=== PATIENT | female | born 1940 | race Caucasian/White ===

== ENCOUNTER 2017-02-16 18:50 | Inpatient (IN) | payer MEDICARE ==
[~2017-02-16] VITALS: Ht 160 cm; Wt 91.1 kg
[2017-02-16 18:52] VITALS: BP 174/72; PULSE 107; RESP 20; TEMP 99; O2SAT 97
--- NOTE | 2017-02-16 19:58 | PD ---
Physical Exam Time Seen by Provider: 19:55 Narrative 76yo F sent by Dr. Perez for elevated d-dimer. pt has had SOB and chest pressure x1 week. Denies hemoptysis. Denies hx of DVT/PE. Denies anticoagulants. VSS. Patient seen in triage. Awaiting bed placement. Data Data Last Documented VS Vital Signs Date Time Temp Pulse Resp B/P Pulse Ox O2 Delivery O2 Flow Rate FiO2 02/16/17 18:52 99.0 107 20 174/72 97 Room Air [facility] Supervised Visit with PATIENCE: Audelia Srinivasan Feb 16, 2017 19:58
[2017-02-16 20:35] VITALS: O2SAT 100
[2017-02-16 20:35] LABS: MEAN CORPUSCULAR HGB CONC 29.3 % (32.0-36.0)
--- NOTE | 2017-02-16 20:37 | PD ---
HPI Chief Complaint: Respiratory Symptoms Time Seen by Provider: 20:30 Travel History International Travel<30 days: No Contact w/Intl Traveler<30days: No Traveled to known affect area: No History of Present Illness HPI 55-year-old female with history of hypertension, osteoporosis, here for evaluation of chest pain and shortness of breath. Patient describes a substernal chest discomfort as well as feeling short of breath on exertion for the last week. She was seen by her primary care physician today who ordered a d -dimer which was positive. Patient denies fevers or chills. No hemoptysis. No history of DVT or PE. No family history of DVT or PE. There is family history of heart disease in her mother. She denies personal history of heart disease. Patient reports having lichen planus on her bilateral lower extremities which causes chronic pain to her legs. This pain is unchanged. PFSH Past Medical History High Cholesterol: Yes Hypertension: Yes Thyroid Disease: Yes (HYPOTHYROIDISM) Tetanus Vaccination: Unknown Influenza Vaccination: No Past Surgical History Appendectomy: Yes Cholecystectomy: Yes Social History Alcohol Use: No Tobacco Use: No Substance Use: No Allergies-Medications (Allergen,Severity, Reaction): Coded Allergies: Penicillin (Verified Allergy, Unknown, 02/16/17) Sulfa (Verified Allergy, Unknown, RASH, 02/16/17) Reported Meds & Prescriptions Reported Meds & Active Scripts Active Reported Levothyroxine (Levothyroxine Sodium) 25 Mcg Tab 25 Mcg PO DAILY Alendronate (Alendronate Sodium) 70 Mg Tab 70 Mg PO Q7D Lovastatin 20 Mg Tab 20 Mg PO DAILY Amlodipine (Amlodipine Besylate) 10 Mg Tab 20 Mg PO DAILY Benazepril (Benazepril HCl) 20 Mg Tab 20 Mg PO DAILY Lialda (Mesalamine) 1.2 Gm Tabdr 2.4 Gm PO BID Take with a meal. Review of Systems Except as stated in HPI: all other systems reviewed are Neg Physical Exam Narrative GENERAL: Well-developed, well-nourished, comfortable, no acute distress. SKIN: Focused skin assessment warm/dry. HEAD: Atraumatic. Normocephalic. EYES: Pupils equal and round. No scleral icterus. No injection or drainage. ENT: Mucous membranes pink and moist. NECK: Trachea midline. No JVD. CARDIOVASCULAR: Regular rate and rhythm. No murmur appreciated. RESPIRATORY: No accessory muscle use. Clear to auscultation. Breath sounds equal bilaterally. GASTROINTESTINAL: Abdomen soft, non-tender, nondistended. MUSCULOSKELETAL: No obvious deformities. No clubbing. No cyanosis. No edema. Bilateral calves are supple. NEUROLOGICAL: Awake and alert. No obvious cranial nerve deficits. Motor grossly within normal limits. Normal speech. PSYCHIATRIC: Appropriate mood and affect; insight and judgment normal. Data Data Last Documented VS Vital Signs Date Time Temp Pulse Resp B/P Pulse Ox O2 Delivery O2 Flow Rate FiO2 02/16/17 20:35 100 Room Air 02/16/17 18:52 99.0 107 20 174/72 Orders Complete Blood Count With Diff (02/16/17 20:34) Comprehensive Metabolic Panel (02/16/17 20:34) Act Partial Throm Time (Ptt) (02/16/17 20:34) Prothrombin Time / Inr (Pt) (02/16/17 20:34) Ckmb (Isoenzyme) Profile (02/16/17 20:34) Troponin I (02/16/17 20:34) Iv Access Insert/Monitor (02/16/17 20:34) Electrocardiogram (02/16/17 20:34) Ecg Monitoring (02/16/17 20:34) Oximetry (02/16/17 20:34) Oxygen Administration (02/16/17 20:34) Chest, Single Ap (02/16/17 20:34) Ct Pulmonary Angiogram (02/16/17 20:34) Sodium Chloride 0.9% Flush (Ns Flush) (02/16/17 20:45) Cbc No Diff, Includes Plts (02/16/17 21:11) Type And Screen (02/16/17 21:12) Iohexol 350 Inj (Omnipaque 350 Inj) (02/16/17 21:57) Red Blood Cells (Rbc) (02/16/17 22:02) Blood Product Administration .UPON TRANSFUSION (02/16/17 22:02) Sodium Chlor 0.9% 250 Ml Inj (Ns 250 Ml (02/16/17 22:15) Labs Laboratory Tests Test 02/16/17 02/16/17 20:45 21:15 White Blood Count 6.8 TH/MM3 6.4 TH/MM3 Red Blood Count 3.57 MIL/MM3 3.37 MIL/MM3 Hemoglobin 6.1 GM/DL 5.7 GM/DL Hematocrit 21.0 % 20.0 % Mean Corpuscular Volume 58.8 FL 59.4 FL Mean Corpuscular Hemoglobin 17.2 PG 17.0 PG Mean Corpuscular Hemoglobin 29.3 % 28.6 % Concent Red Cell Distribution Width 20.4 % 19.7 % Platelet Count 385 TH/MM3 343 TH/MM3 Mean Platelet Volume 8.5 FL 7.6 FL Neutrophils (%) (Auto) 65.3 % Lymphocytes (%) (Auto) 18.5 % Monocytes (%) (Auto) 13.8 % Eosinophils (%) (Auto) 1.7 % Basophils (%) (Auto) 0.7 % Neutrophils # (Auto) 4.5 TH/MM3 Lymphocytes # (Auto) 1.3 TH/MM3 Monocytes # (Auto) 0.9 TH/MM3 Eosinophils # (Auto) 0.1 TH/MM3 Basophils # (Auto) 0.0 TH/MM3 CBC Comment AUTO DIFF Differential Comment AUTO DIFF CONFIRMED Platelet Estimate NORMAL Platelet Morphology Comment NORMAL Prothrombin Time 10.7 SEC Prothromb Time International 1.0 RATIO Ratio Activated Partial 24.6 SEC Thromboplast Time Sodium Level 134 MEQ/L Potassium Level 4.3 MEQ/L Chloride Level 100 MEQ/L Carbon Dioxide Level 25.2 MEQ/L Anion Gap 9 MEQ/L Blood Urea Nitrogen 21 MG/DL Creatinine 0.96 MG/DL Estimat Glomerular Filtration 57 ML/MIN Rate Random Glucose 91 MG/DL Calcium Level 9.3 MG/DL Total Bilirubin 0.5 MG/DL Aspartate Amino Transf 18 U/L (AST/SGOT) Alanine Aminotransferase 17 U/L (ALT/SGPT) Alkaline Phosphatase 84 U/L Total Creatine Kinase 100 U/L Troponin I LESS THAN 0.02 NG/ML Total Protein 8.3 GM/DL Albumin 3.9 GM/DL Blood Type O POSITIVE MDM Medical Decision Making Medical Screen Exam Complete: Yes Emergency Medical Condition: Yes Interpretation(s) EKG: Sinus, rate 88, normal axis, normal intervals, no acute ischemic abnormality. Differential Diagnosis ACS, PE, pericarditis, pneumonia, pneumothorax Narrative Course Initial vital signs show heart rate 107, blood pressure 174/72, pulse ox 97% on room air, oral temp of 99F. CBC shows WBC 6.8, hemoglobin 6.1, hematocrit 21, platelets 385. The patient has history of ulcerative colitis, however she denies melena or hematochezia. Stool is heme positive and brown. Repeat CBC will be performed to confirm anemia. Repeat hemoglobin is 5.7. Patient was made aware of anemia and need for blood transfusion. She was consented for transfusion. Patient reports that she had a colonoscopy by Dr. Merlos in August of last year and was told that it was essentially unremarkable. CMP is unremarkable. Cardiac enzymes are negative. CT pulmonary angiogram: CONCLUSION: No evidence of pulmonary embolism The patient is not on any antiplatelets or anticoagulants other than starting a baby aspirin today. She'll be transfused 2 units of PRBCs here in the emergency department and will be admitted for further treatment and evaluation of symptomatic anemia, heme-positive stool. Case discussed with [facility] hospitalist MEHRAN Mahan. Patient will be admitted to their service under Dr. Woods. HemaPrompt Point of Care Internal Pos. & Neg. Controls: Passed Fecal Specimen Occult Blood: Positive Comment Heme positive brown stool Diagnosis Primary Impression: Symptomatic anemia Additional Impression: Heme positive stool Admitting Information Admitting Physician Requests: Admit Renny Dalal MD Feb 16, 2017 20:37
[2017-02-16] MEDS ORDERED: ALEN1TAB48 PO (20:38)
[2017-02-16] MEDS ORDERED: AMLO10TA2 PO (20:38)
[2017-02-16] MEDS ORDERED: LOVA20TA PO (20:38)
[2017-02-16] MEDS ORDERED: LEVO25TA4 PO (20:38)
[2017-02-16] MEDS ORDERED: LIAL1.2T PO (20:38)
[2017-02-16] MEDS ORDERED: BENA20TA PO (20:38)
[2017-02-16] MEDS ORDERED: SODIUM CHLORIDE 0.9% FLUSH 10 ML FLUSH IVF PRN (20:45)
[2017-02-16 21:00] VITALS: BP 175/77; PULSE 91; RESP 20; O2SAT 99
[2017-02-16 21:02] LABS: AUTOMATED NEUTROPHIL # 4.5 TH/MM3 (1.8-7.7); BASOPHIL % 0.7 % (0.0-2.0); EOSINOPHIL # 0.1 TH/MM3 (0-0.4); EOSINOPHIL % 1.7 % (0.0-4.0); LYMPH % 18.5 % (9.0-44.0); LYMPHOCYTE # 1.3 TH/MM3 (1.0-4.8); MEAN CELL VOLUME 58.8 FL (80.0-100.0); MEAN CORPUSCULAR HEMOGLOBIN 17.2 PG (27.0-34.0); MONO % 13.8 % (0.0-8.0); NEUT % 65.3 % (16.0-70.0); PLATELET COUNT 385 TH/MM3 (150-450); RED BLOOD COUNT 3.57 MIL/MM3 (4.00-5.30); RED CELL DISTRIBUTION WIDTH 20.4 % (11.6-17.2); WHITE BLOOD COUNT 6.8 TH/MM3 (4.0-11.0)
[2017-02-16 21:10] LABS: HEMO FLAGS AUTO DIFF
--- NOTE | 2017-02-16 21:10 | RADRPT ---
EXAM DATE/TIME: 02/16/2017 20:38 [facility] COMPARISON: No previous studies available for comparison. INDICATIONS : Short of breath MEDICAL HISTORY : None. SURGICAL HISTORY : None. ENCOUNTER: Initial ACUITY: 3 days PAIN SCORE: 0/10 LOCATION: Bilateral chest FINDINGS: Large hiatal hernia suspected. Vague adjacent parenchymal density is likely atelectasis. Right lung i s grossly clear. No significant effusion is suspected. Heart size and pulmonary vascularity are esteban l. CONCLUSION: Large hiatal hernia. No definite acute cardiopulmonary disease Chico Mariscal MD on February 16, 2017 at 21:07 Board Certified Radiologist. This report was verified electronically.
[2017-02-16 21:12] LABS: MEAN CORPUSCULAR HGB CONC 28.6 % (32.0-36.0)
[2017-02-16 21:16] LABS: APTT (PATIENT) 24.6 SEC (24.3-30.1); PROTHROMBIN TIME - PATIENT 10.7 SEC (9.8-11.6)
[2017-02-16 21:42] LABS: ANION GAP 9 MEQ/L (5-15); AST (GOT) 18 U/L (15-37); BICARBONATE 25.2 MEQ/L (21.0-32.0); BLOOD UREA NITROGEN 21 MG/DL (7-18); CHLORIDE 100 MEQ/L (98-107); GLOMERULAR FILTRATION RATE 57 ML/MIN (>89); PLATELET ESTIMATE SMEAR NORMAL (NORMAL); PLATELET MORPHOLOGY NORMAL (NORMAL); POTASSIUM 4.3 MEQ/L (3.5-5.1); SCAN/DIFF AUTO DIFF CONFIRMED; SODIUM (NA) 134 MEQ/L (136-145)
[2017-02-16 21:49] LABS: ALKALINE PHOSPHATASE 84 U/L (45-117); ALT (GPT) 17 U/L (10-53); TOTAL BILIRUBIN ADULT 0.5 MG/DL (0.2-1.0)
[2017-02-16 21:51] LABS: MEAN CELL VOLUME 59.4 FL (80.0-100.0); PLATELET COUNT 343 TH/MM3 (150-450); RED BLOOD COUNT 3.37 MIL/MM3 (4.00-5.30); RED CELL DISTRIBUTION WIDTH 19.7 % (11.6-17.2); WHITE BLOOD COUNT 6.4 TH/MM3 (4.0-11.0)
[2017-02-16 21:53] LABS: REVIEW FLAG FINAL
[2017-02-16] MEDS ORDERED: IOHEXOL 350 MG/ML 10 ML VIAL (for RAD DIAG) IV ONE (21:57)
[2017-02-16 21:58] LABS: CREATINE KINASE 100 U/L (26-192)
--- NOTE | 2017-02-16 22:05 | RADRPT ---
EXAM DATE/TIME: 02/16/2017 21:45 [facility] COMPARISON: No previous studies available for comparison. INDICATIONS : Shortness of breath and chest pressure. IV CONTRAST: 75 cc Omnipaque 350 (iohexol) IV RADIATION DOSE: 15.60 CTDIvol (mGy) MEDICAL HISTORY : Hypothyroidism. Hypertension. SURGICAL HISTORY : None. ENCOUNTER: Initial ACUITY: 2 weeks PAIN SCALE: 6/10 LOCATION: chest TECHNIQUE: Volumetric scanning of the chest was performed using a pulmonary embolism protocol MIP images were re constructed. Using automated exposure control and adjustment of the mA and/or kV according to patien t size, radiation dose was kept as low as reasonably achievable to obtain optimal diagnostic quality images. FINDINGS: PULMONARY ARTERIES: No filling defects are seen in the pulmonary arteries through the segmental level. LUNGS: There is no consolidation or pneumothorax . No concerning pulmonary nodule is visualized. Minimal at electasis adjacent to large hiatal hernia in the left lung base. PLEURAE: There is no pleural thickening or pleural effusion. MEDIASTINUM: There is good visualization of the great vessels of the middle mediastinum. No evidence of mediastin al or hilar adenopathy/mass. Small normal size mediastinal lymph nodes. Coronary artery calcification s. Large hiatal hernia. MUSCULOSKELETAL: Within normal limits for patient age. MISCELLANEOUS: The visualized upper abdominal organs demonstrate no acute abnormality. CONCLUSION: No evidence of pulmonary embolism Chico Mariscal MD on February 16, 2017 at 22:00 Board Certified Radiologist. This report was verified electronically.
[2017-02-16] MEDS ORDERED: SODIUM CHLOR 0.9% 250 ML INJ 250 ML IV ONE (22:15)
--- NOTE | 2017-02-16 22:47 | EKG ---
Date Performed: 02/16/2017 Time Performed: 20:44:46 PTAGE: 76 years EKG: Sinus rhythm NORMAL ECG NO PREVIOUS TRACING DOCTOR: Juan West Interpretating Date/Time 02/16/2017 22:46:15
[2017-02-16 23:51] LABS: MEAN CORPUSCULAR HGB CONC 29.9 % (32.0-36.0)
[2017-02-17] VITALS (11 sets, daily range): BP systolic 112–159; BP diastolic 52–84; PULSE 77–92; RESP 16–21; TEMP 97.5–98.6; O2SAT 95–98
[2017-02-17] MEDS ORDERED: SENNOSIDES 8.6 MG TAB PO PRN
[2017-02-17] MEDS ORDERED: ACETAMINOPHEN 325 MG TAB PO PRN
[2017-02-17] MEDS ORDERED: BISACODYL 10 MG SUPP RECTAL PRN
[2017-02-17] MEDS ORDERED: SODIUM CHLORIDE 0.9% FLUSH 10 ML FLUSH IV FLUSH PRN
[2017-02-17] MEDS ORDERED: ONDANSETRON HCL 4 MG/2 ML VIAL IVP PRN
[2017-02-17] MEDS: PANTOPRAZOLE SODIUM 40 MG VIAL IV PUSH SCH ×2 (04:23→12:55)
[2017-02-17] MEDS: SODIUM CHLOR 0.9% 1000 ML INJ 1,000 ML IV SCH ×2 (07:04→09:47)
[2017-02-17] MEDS: SODIUM CHLORIDE 0.9% FLUSH 10 ML FLUSH IV FLUSH SCH ×2 (09:00→20:23)
[2017-02-17 11:54] LABS: AUTOMATED NEUTROPHIL # 3.5 TH/MM3 (1.8-7.7); BASOPHIL # 0.1 TH/MM3 (0-0.2); EOSINOPHIL # 0.1 TH/MM3 (0-0.4); EOSINOPHIL % 2.5 % (0.0-4.0); HEMATOCRIT 28.2 % (35.0-46.0); LYMPH % 14.5 % (9.0-44.0); LYMPHOCYTE # 0.7 TH/MM3 (1.0-4.8); MEAN CELL VOLUME 66.2 FL (80.0-100.0); MEAN CORPUSCULAR HEMOGLOBIN 19.8 PG (27.0-34.0); MONO % 11.7 % (0.0-8.0); NEUT % 70.3 % (16.0-70.0); PLATELET COUNT 306 TH/MM3 (150-450); RED BLOOD COUNT 4.26 MIL/MM3 (4.00-5.30); RED CELL DISTRIBUTION WIDTH 27.1 % (11.6-17.2)
[2017-02-17 12:02] LABS: HEMO FLAGS AUTO DIFF
[2017-02-17 12:22] LABS: POTASSIUM 4.2 MEQ/L (3.5-5.1)
--- NOTE | 2017-02-17 12:33 | HHI.HP ---
[facility] Justice Admission Diagnosis symptomatic anemia, heme-positive stool Diagnoses: Chief Complaint: ZELAYA, black stools (Windy Arroyo) Travel History International Travel<30 Days: No Contact w/Intl Traveler <30 Da: No Traveled to Known Affected Are: No (Windy Arroyo) History of Present Illness This a pleasant 76-year-old female with significant past medical history hypertension, hyperlipidemia, hypothyroid, ulcer colitis, GI bleed. Patient indicates that for the last week she has had dyspnea with exertion and chest pressure, this improves after resting. There is no radiation, no other associated symptoms such as nausea, vomiting, diaphoresis. She went to see her primary care physician who ordered a d-dimer which was positive. She was sent to the emergency room for further evaluation. Patient denies any fever, no chills. Has noted in the last couple days that her stools are darker. No hematemesis. No weight loss, no abdominal discomfort, no weight loss. States that she sees gastroenterology, Dr. Merlos for history of ulcerative colitis which has been stable, has never had any complications. She is maintained on Lialda. Patient states she had a colonoscopy on August 2016 that did not reveal any acute findings. She's had previous episodes of anemia, her hemoglobin dropped to 3 and she received 4 units. She is not exactly sure what caused her previous episode of anemia. Patient was evaluated in emergency room , hemoglobin was 6.1, hematocrit 21. Repeat hemoglobin was 5.7 and hematocrit of 20. She was heme-positive stools. She received 2 units of packed cells and her posttransfusion hemoglobin was 8.4, and hematocrit 28.2. Troponins were negative. CTA was done, negative for PE. She has been evaluated by gastroenterology, the plan is for upper and lower endoscopy today. Patient is resting comfortably, she is sitting up in the chair. Denies any dizziness. Patient is admitted for further evaluation and treatment. (Windy Arroyo) Review of Systems Constitutional: COMPLAINS OF: Fatigue, DENIES: Diaphoretic episodes, Fever, Weight gain, Weight loss, Chills, Dizziness, Change in appetite, Night Sweats Endocrine: DENIES: Abnorml menstrual pattern, Heat/cold intolerance, Polydipsia , Polyuria, Polyphagia Eyes: DENIES: Blurred vision, Diplopia, Eye inflammation, Eye pain, Vision loss , Photosensitivity, Double Vision Ears, nose, mouth, throat: DENIES: Tinnitus, Hearing loss, Vertigo, Nasal discharge, Oral lesions, Throat pain, Hoarseness, Ear Pain, Running Nose, Epistaxis, Sinus Pain, Toothache, Odynophagia Respiratory: DENIES: Apneas, Cough, Snoring, Wheezing, Hemoptysis, Sputum production, Shortness of breath Cardiovascular: COMPLAINS OF: Dyspnea on Exertion, DENIES: Chest pain, Palpitations, Syncope, PND, Lower Extremity Edema, Orthopnea, Claudication Gastrointestinal: COMPLAINS OF: Black stools, DENIES: Abdominal pain, Bloody stools, Constipation, Diarrhea, Nausea, Vomiting, Difficulty Swallowing, Anorexia Genitourinary: DENIES: Abnormal vaginal bleeding, Dysmenorrhea, Dyspareunia, Sexual dysfunction, Urinary frequency, Urinary incontinence, Urgency, Hematuria , Dysuria, Nocturia, Vaginal discharge Musculoskeletal: DENIES: Joint pain, Muscle aches, Stiffness, Joint Swelling, Back pain, Neck pain Integumentary: COMPLAINS OF: Rash (legs, hx lichen planus, chronic condition, stable ), DENIES: Abnormal pigmentation, Pruritus, Nail changes, Breast masses , Breast skin changes, Nipple discharge Hematologic/lymphatic: DENIES: Bruising, Lymphadenopathy Immunologic/allergic: DENIES: Eczema, Urticaria Neurologic: DENIES: Abnormal gait, Headache, Localized weakness, Paresthesias, Seizures, Speech Problems, Tremor, Poor Balance Psychiatric: DENIES: Anxiety, Confusion, Mood changes, Depression, Hallucinations, Agitation, Suicidal Ideation, Homicidal Ideation, Delusions ( Windy Arroyo) Past Family Social History Past Medical History HTN Hyperlipidemia Hypothyroid Anemia in the past, requiring blood transfusion Ulcerative colitis Lichen planus Past Surgical History Appendectomy Cholecystectomy EGD and colonoscopy August 2016-indicates no significant abnormalities found Reported Medications Reported Meds & Active Scripts Active Reported Levothyroxine (Levothyroxine Sodium) 25 Mcg Tab 25 Mcg PO DAILY Alendronate (Alendronate Sodium) 70 Mg Tab 70 Mg PO Q7D Lovastatin 20 Mg Tab 20 Mg PO DAILY Amlodipine (Amlodipine Besylate) 10 Mg Tab 20 Mg PO DAILY Benazepril (Benazepril HCl) 20 Mg Tab 20 Mg PO DAILY Lialda (Mesalamine) 1.2 Gm Tabdr 2.4 Gm PO BID Take with a meal. (Windy Arroyo) Allergies: Coded Allergies: Penicillin (Verified Allergy, Unknown, 02/16/17) Sulfa (Verified Allergy, Unknown, RASH, 02/16/17) Active Ordered Medications Inpatient Medications Acetaminophen (Tylenol) 650 mg Q4H PRN PO TEMP > 100.4; Start 02/17/17 at 00:00 Bisacodyl (Dulcolax Supp) 10 mg DAILY PRN RECTAL CONSTIPATION; Start 02/17/17 at 00:00 Naloxone HCl (Narcan Inj) 0.4 mg UNSCH PRN IV SEE LABEL COMMENTS; Start at 00:00 Ondansetron HCl (Zofran Inj) 4 mg Q6H PRN IVP NAUSEA OR VOMITING; Start at 00:00 Pantoprazole Sodium (Protonix Inj) 40 mg Q12H IV PUSH Last administered on 02/17 04:23; Start 02/17/17 at 00:00 Sennosides (Senokot) 17.2 mg Q12H PRN PO CONSTIPATION; Start 02/17/17 at 00:00 Sodium Chloride (NS 1000 ml Inj) 1,000 ml @ 100 mls/hr Q10H IV Last administered on 02/17/17 09:47; Start 02/16/17 at 23:47 Sodium Chloride (NS Flush) 2 ml BID IV FLUSH Last administered on 02/17/17 09: 00; Start 02/17/17 at 09:00 Sodium Chloride 2 ml 2 ml UNSCH PRN IVF FLUSH AFTER USING IV ACCESS; Start at 20:45 Family History Mother from coronary artery disease and myocardial infarction age 58 Father at age 87 from old age, history of colon cancer Sister with history of esophageal cancer Social History Patient is a , has one grown daughter. Doesn't smoke, no alcohol, no substance abuse. 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 (Windy Arroyo) Physical Exam Vital Signs Vital Signs Date Time Temp Pulse Resp B/P Pulse Ox O2 Delivery O2 Flow Rate FiO2 02/17/17 06:41 98.6 80 21 157/84 98 02/17/17 04:15 97.6 79 18 144/64 97 02/17/17 04:00 97.6 77 18 144/61 97 02/17/17 01:16 97.6 82 20 112/52 97 02/17/17 01:04 97.6 84 20 129/57 97 02/17/17 00:51 97.5 92 16 136/67 98 02/17/17 00:37 97.5 92 16 136/67 98 02/17/17 00:04 95 21 02/16/17 21:00 91 20 175/77 99 Room Air 02/16/17 20:35 100 Room Air 02/16/17 18:52 99.0 107 20 174/72 97 Room Air Physical Exam GENERAL: This is a well-nourished, well-developed patient, in no apparent distress. SKIN: annular lesions to legs, with darkened skin discoloration around. No exudate. Skin pale and dry HEAD: Atraumatic. Normocephalic. No temporal or scalp tenderness. EYES: Pupils equal round and reactive. Extraocular motions intact. No scleral icterus. No injection or drainage. ENT: Nose without bleeding, purulent drainage or septal hematoma. Throat without erythema, tonsillar hypertrophy or exudate. Uvula midline. Airway patent. NECK: Trachea midline. No JVD or lymphadenopathy. Supple, nontender, no meningeal signs. CARDIOVASCULAR: Regular rate and rhythm without murmurs, gallops, or rubs. RESPIRATORY: Clear to auscultation. Breath sounds equal bilaterally. No wheezes , rales, or rhonchi. GASTROINTESTINAL: Abdomen soft, non-tender, nondistended. No hepato-splenomegaly , or palpable masses. No guarding. MUSCULOSKELETAL: Extremities without clubbing, cyanosis, or edema. No joint tenderness, effusion, or edema noted. No calf tenderness. Negative Homans sign bilaterally. NEUROLOGICAL: Awake and alert. Cranial nerves II through XII intact. Motor and sensory grossly within normal limits. Five out of 5 muscle strength in all muscle groups. Normal speech. Laboratory Laboratory Tests Test 02/16/17 02/16/17 02/16/17 02/16/17 20:45 21:15 22:02 22:37 White Blood Count 6.8 6.4 Red Blood Count 3.57 3.37 Hemoglobin 6.1 5.7 Hematocrit 21.0 20.0 Mean Corpuscular Volume 58.8 59.4 Mean Corpuscular Hemoglobin 17.2 17.0 Mean Corpuscular Hemoglobin 29.3 28.6 Concent Red Cell Distribution Width 20.4 19.7 Platelet Count 385 343 Mean Platelet Volume 8.5 7.6 Neutrophils (%) (Auto) 65.3 Lymphocytes (%) (Auto) 18.5 Monocytes (%) (Auto) 13.8 Eosinophils (%) (Auto) 1.7 Basophils (%) (Auto) 0.7 Neutrophils # (Auto) 4.5 Lymphocytes # (Auto) 1.3 Monocytes # (Auto) 0.9 Eosinophils # (Auto) 0.1 Basophils # (Auto) 0.0 CBC Comment AUTO DIFF Differential Comment AUTO DIFF CONFIRMED Platelet Estimate NORMAL Platelet Morphology Comment NORMAL Prothrombin Time 10.7 Prothromb Time International 1.0 Ratio Activated Partial 24.6 Thromboplast Time Sodium Level 134 Potassium Level 4.3 Chloride Level 100 Carbon Dioxide Level 25.2 Anion Gap 9 Blood Urea Nitrogen 21 Creatinine 0.96 Estimat Glomerular Filtration 57 Rate Random Glucose 91 Calcium Level 9.3 Total Bilirubin 0.5 Aspartate Amino Transf 18 (AST/SGOT) Alanine Aminotransferase 17 (ALT/SGPT) Alkaline Phosphatase 84 Total Creatine Kinase 100 Troponin I LESS THAN 0.02 Total Protein 8.3 Albumin 3.9 Blood Type O POSITIVE O POSITIVE Antibody Screen NEGATIVE Blood Bank Comment Crossmatch Leukocyte-Reduced Red Blood Cells Test 02/17/17 11:41 White Blood Count 5.0 Red Blood Count 4.26 Hemoglobin 8.4 Hematocrit 28.2 Mean Corpuscular Volume 66.2 Mean Corpuscular Hemoglobin 19.8 Mean Corpuscular Hemoglobin 29.9 Concent Red Cell Distribution Width 27.1 Platelet Count 306 Mean Platelet Volume 8.4 Neutrophils (%) (Auto) 70.3 Lymphocytes (%) (Auto) 14.5 Monocytes (%) (Auto) 11.7 Eosinophils (%) (Auto) 2.5 Basophils (%) (Auto) 1.0 Neutrophils # (Auto) 3.5 Lymphocytes # (Auto) 0.7 Monocytes # (Auto) 0.6 Eosinophils # (Auto) 0.1 Basophils # (Auto) 0.1 CBC Comment AUTO DIFF Sodium Level 137 Potassium Level 4.2 Chloride Level 104 Carbon Dioxide Level 26.0 Anion Gap 7 Blood Urea Nitrogen 11 Creatinine 0.72 Estimat Glomerular Filtration 79 Rate Random Glucose 90 Calcium Level 8.4 Troponin I LESS THAN 0.02 (Windy Arroyo) Result Diagram: 02/17/17 1141 02/17/17 1141 Imaging Last Impressions Chest X-Ray 02/16/172033 Signed Impressions: Service Date/Time: February 20:38 - CONCLUSION: Large hiatal hernia. No definite acute cardiopulmonary disease Chico Mariscal MD CT Angiography 02/16/172033 Signed Impressions: Service Date/Time: February 21:45 - CONCLUSION: No evidence of pulmonary embolism Chico Mariscal MD (Windy Arroyo) Assessment and Plan Problem List: (1) Symptomatic anemia (2) Heme positive stool (3) Hiatal hernia (4) HTN (hypertension) (5) Hyperlipidemia (6) Hx of ulcerative colitis Assessment and Plan Admit to Dr. Woods 76-year-old female presented to emergency room with complaints of dyspnea with exertion for the last 2 weeks, has noted dark stools, history of ulcerative colitis.CTA completed in the emergency room was negative for pulmonary emboli. Found with hemoglobin of 6.1, hematocrit 21. Heme-positive stools, microcytic anemia. -Status post blood transfusion 2 units, follow up hemoglobin 8.4, hematocrit 28.2 -Continue with serial H&H's Gastroenterology has been consulted, Dr. Pinon has evaluated patient and plans to do upper and lower endoscopy today -Continue with Protonix IV -NPO status History of ulcerative colitis, on Lialda, has been stable. -GI consultation -Monitor stools CT findings of large hiatal hernia GI has been consulted Hypertension, stable Continue home medication Hyperlipidemia, stable Continue home medication SCDs for DVT prophylaxis Protonix for GI prophylaxis Plan of care has been discussed with the patient, attending and registered nurse. Further management of the patient will be dependent on the hospital course This patient was seen by myself and Dr. Woods, this H&P is written on his behalf (Windy Arroyo) Assessment and Plan seen, examined by myself, Dr Woods, on 02/17/17 Atypical chest discomfort Severe anemia Receive 2 units packed red blood cells GI consult Discussed with patient Discussed with mid level provider The exam, history, and the medical decision-making described in the above note were completed with the assistance of the mid-level provider. I reviewed the findings presented. I attest that I had a [id number] encounter with the patient on the same day, and personally performed and documented my assessment and findings in the medical record. (Landon Woods MD) Physician Certification 2 Midnight Certification Type: Admission for Inpatient Services Order for Inpatient Services The services are ordered in accordance with Medicare regulations or non- Medicare payer requirements, as applicable. In the case of services not specified as inpatient-only, they are appropriately provided as inpatient services in accordance with the 2-midnight benchmark. Estimated LOS (days): 2 2 days is the estimated time the patient will need to remain in the hospital, assuming treatment plan goals are met and no additional complications. Post-Hospital Plan: Home (Windy Arroyo) Problem Qualifiers (1) HTN (hypertension): Qualified Code: I10 - Essential hypertension (2) Hyperlipidemia: Qualified Code: E78.5 - Hyperlipidemia, unspecified hyperlipidemia type Windy Arroyo Feb 17, 2017 12:33 Landon Woods MD Feb 18, 2017 14:41
[2017-02-17 13:24] LABS: SCAN/DIFF AUTO DIFF CONFIRMED
--- NOTE | 2017-02-17 14:38 | MB ---
cc: BJ OVIEDO MAZHAR MD RICCI,MINH SKY M.D., M.D. DATE OF CONSULTATION: 02/17/2017. REASON FOR CONSULTATION: I have been asked to see the patient in consultation by Dr. Woods for evaluation of heme-positive stools and microcytic anemia. DATE OF : 04/28/1946. HISTORY OF PRESENT ILLNESS: The patient is a pleasant 76-year-old white female who has been diagnosed with ulcerative colitis. Dr. Merlos did a colonoscopy in August of 2016 and the exam was notable for colonic diverticulosis but there was no active colitis seen -- biopsies were also negative. The patient has been maintained on Lialda. The patient also gives a history in 2002 of having anemia and being transfused. At that time, Dr. Merlos also did an upper endoscopy on her and she had a large hiatal hernia. She has not had any further upper endoscopies. Recently the patient was feeling weak and tired and a little short of breath and had some epigastric and lower chest pain. She saw her primary care doctor who did a D-dimer and it was positive. She came to emergency room. In the emergency room, a CT angiography was done and there is no pulmonary embolism. Further evaluation revealed heme-positive stools which were brown. She has also evidence of microcytic anemia. We have been asked to evaluate this situation. The patient has received blood and she is feeling better. She no longer has chest pain or shortness of breath. She denies any dysphagia, early satiety or nausea or vomiting. No melena, hematochezia, diarrhea, constipation. She says her ulcerative colitis is quite stable on Lialda. She was started on aspirin because of the possibility she may have an embolism but she has not been taking aspirin as well as nonsteroidals otherwise. PAST MEDICAL HISTORY: Her past medical history is significant for: 1. Upper endoscopy with colonoscopy. 2. Appendectomy. 3. Cholecystectomy. 4. Ulcerative colitis. 5. Hypertension. 6. Anemia. 7. Dyslipidemia. 8. Lichen simplex chronicus. 9. Hypothyroidism. SOCIAL HISTORY: She does not currently smoke or drink. FAMILY HISTORY: Family history is significant for father with colon cancer, a sister with esophageal cancer. ALLERGIES: 1. PENICILLIN. 2. SULFA. OUTPATIENT MEDICATIONS: 1. Lialda. 2. Benazepril. 3. Amlodipine. 4. Lovastatin. 5. Alendronate. 6. Levothyroxine. INPATIENT MEDICATIONS: 1. Tylenol. 2. Zofran. 3. Dulcolax. 4. Senokot. 5. Narcan. 6. Protonix IV. PHYSICAL EXAMINATION: VITAL SIGNS: Blood pressure is 136/67, pulse 92, respiratory rate of 16, temperature 97.5. GENERAL: In general, she is a pale-appearing overweight white female resting comfortably at this time. She is in no acute GI distress. HEAD, EYES, EARS, NOSE, THROAT: Pupils equal, round and reactive to light. No obvious scleral icterus. The oropharynx had dental caries. No tongue deviation. No Candidal lesions. Hearing is intact. NECK: The neck is supple. No thyromegaly or lymphadenopathy. LUNGS: Clear to auscultation and percussion. HEART: Regular rate and rhythm. No gross murmurs are heard. ABDOMEN: The abdomen is soft, nontender and nondistended. No organomegaly. No hernias. RECTAL: I did not repeat a rectal exam on her but apparently it was brown and heme-positive. GAIT: I did not assess her gait. DATABASE: As mentioned above, the patient had a CT angiography and there is no evidence of any pulmonary embolism. Her laboratories revealed hemoglobin of 6.1 on admission, hematocrit was 21, MCV 58.8, white blood cell count 6800; it was repeated and about an hour later, hemoglobin was 5.7 with hematocrit of 20. Platelet count 385,000. BUN was elevated at 21, creatinine 0.96, sodium 134, potassium 4.3, SGOT of 18, SGPT of 17. Total bilirubin is 0.5, alkaline phosphatase 85. CPK is normal at 100. Troponin less than 0.02. Albumin 3.9. A repeat hemoglobin is pending. IMPRESSIONS: 1. Heme-positive stools with microcytic anemia - we talked about the differential. As mentioned above, her colonoscopy in August of 2016 did not show any evidence of any active ulcerative colitis - biopsies are also negative. She only had diverticulosis. She does have a history of a large hiatal hernia and large hiatal hernias can cause microcytic anemia. I cannot rule out AVM anywhere to the GI tract, a malignancy of the stomach, esophagus, duodenum or even small malignancies. She may also have an ulcer. We need to evaluate her further with an upper endoscopy. She is agreeable. See below. 2. Microcytic anemia--see above differential. 3. History of ulcerative colitis. It does not appear to be active. She denies any diarrhea or GI bleeding. 4. Large hiatal hernia - see above. RECOMMENDATIONS: 1. Proceed with upper endoscopy hopefully this afternoon. All indications, risks, complications, benefits, alternatives were discussed with her including the risk of bleeding, perforation, infection, arrhythmias and the small possibility of . Because of her weight, she is at higher risk but she is willing to get this done this afternoon. 2. Further recommendations depending on what the above testing shows. She understands that if it is negative, she may need to have a capsule endoscopy. We talked about indications, risks, complications and benefits and limitations including capsule retention requiring endoscopic or surgical removal. This will be done as an outpatient. Thank you for the consultation. Further recommendations after the upper endoscopy is done. Minh Pinon MD SP/SAURAV /12:07 PM /2:13 PM MTDDaya
[2017-02-17] MEDS ORDERED: PROPOFOL 200 MG/20 ML AMP IV ONE (16:06)
[2017-02-17] MEDS ORDERED: NALOXONE HCL 0.4 MG/ML AMP IV PRN ×2 (16:30)
[2017-02-17] MEDS ORDERED: FLUMAZENIL 0.5 MG/5 ML VIAL IV PRN ×2 (16:30)
--- NOTE | 2017-02-17 16:39 | HHI.GIFU ---
GI Follow-up Note Consult Follow-up EGD with Biopsy (see full dictated note also-[id number]) Esophagus-Normal Stomach-Large hiatal hernia (suspect paraesophageal). At lower cuff of H-H several linear erosions and ulcers were see (Bautista lesions)-bx Duodenum- erosions were seen in bulb PLAN: 1. await bx 2. PPI 3. Iron supplements 4. advance diet 5. F/U with Dr. Merlos to arrange outpt UGI to further define the anatomy of the H-H in anticipation of a surgical repair of it 6. Pt may be D/C once tolerating diet and Hgb stable It was a pleasure seeing Lilian Marquez Thank you for this consult. Entered by: Minh Rivero MD Feb 17, 2017 16:39
[2017-02-17] MEDS: FERROUS SULFATE 325 MG (65 MG ELEMENTAL IRON) TAB PO SCH (20:23)
[2017-02-17] MEDS ORDERED: MESALAMINE 1.2 GM PO SCH (21:00)
[2017-02-17 21:09] LABS: MEAN CORPUSCULAR HGB CONC 29.6 % (32.0-36.0)
[2017-02-18 00:29] VITALS: BP 121/58; PULSE 70; RESP 19; TEMP 97.8; O2SAT 96
[2017-02-18] MEDS: PANTOPRAZOLE SODIUM 40 MG VIAL IV PUSH SCH (00:42)
[2017-02-18 04:33] VITALS: BP 131/70; PULSE 73; RESP 20; TEMP 97.9; O2SAT 98
[2017-02-18] MEDS: SODIUM CHLOR 0.9% 1000 ML INJ 1,000 ML IV SCH (04:50)
[2017-02-18] MEDS ORDERED: LEVOTHYROXINE SODIUM 25 MCG TAB PO SCH (06:00)
[2017-02-18 07:54] LABS: HEMATOCRIT 26.6 % (35.0-46.0); MEAN CELL VOLUME 66.5 FL (80.0-100.0); MEAN CORPUSCULAR HEMOGLOBIN 19.7 PG (27.0-34.0); PLATELET COUNT 265 TH/MM3 (150-450); RED CELL DISTRIBUTION WIDTH 27.4 % (11.6-17.2); WHITE BLOOD COUNT 4.3 TH/MM3 (4.0-11.0)
[2017-02-18 07:59] LABS: REVIEW FLAG FINAL
[2017-02-18 08:00] VITALS: BP 143/70; PULSE 78; RESP 16; TEMP 96.6; O2SAT 98
[2017-02-18 08:23] LABS: BICARBONATE 26.8 MEQ/L (21.0-32.0); POTASSIUM 3.9 MEQ/L (3.5-5.1)
[2017-02-18] MEDS: FERROUS SULFATE 325 MG (65 MG ELEMENTAL IRON) TAB PO SCH (08:47)
[2017-02-18] MEDS ORDERED: LISINOPRIL 20 MG TAB PO SCH (09:00)
[2017-02-18] MEDS ORDERED: PRAVASTATIN SOD 20 MG TAB PO SCH (09:00)
[2017-02-18] MEDS: SODIUM CHLORIDE 0.9% FLUSH 10 ML FLUSH IV FLUSH SCH (09:00)
[2017-02-18 10:47] VITALS: O2SAT 96
[2017-02-18 12:35] LABS: TRANSFERRIN IRON PROFILE 388 MG/DL (200-360)
--- NOTE | 2017-02-18 12:43 | HHI.GIFU ---
GI Follow-up Note Consult Follow-up Subjective: Patient laying in bed comfortably. Tolerating diet. No overt GI bleeding Objective: PHYSICAL EXAMINATION: Vitals signs stable No fever . CHEST: Chest is clear to auscultation and percussion. CARDIAC: Regular rate and rhythm with no murmur gallop or rubs. ABDOMEN: Soft, nondistended, nontender; no hepatosplenomegaly; bowel sounds are present in all four quadrants. EXTREMITIES: No edema. SKIN: no rash; no jaundice. IMMIGRATION OFFICER: No focal deficits; alert and oriented times three. Available Data (labs, X- Rays, Procedures) : Hgb 7.9,. iron studies pending ASSESSMENT/PLAN: 1. OB+ stools 2. Microcytic anemia-stable 3. UC-stable 4. Large H-H (prob paraesophageal) with Bautista lesions (ulcers/erosions at H-H) 5. Duodenal bulb erosions PLAN: 1. PPI and Iron supplements 2. outpt UGI/possible surgery to fix the H-H 3. F/U with Dr. Merlos to arrange above 4. will see pt again as an inpt as needed It was a pleasure seeing Lilian Marquez Thank you for this consult. Entered by: Minh Rivero MD Feb 18, 2017 12:43
[2017-02-18 12:45] VITALS: BP 119/62; PULSE 78; RESP 16; TEMP 96.2; O2SAT 97
[2017-02-18] MEDS ORDERED: PANTOPRAZOLE SOD 40 MG DELAYED RELEASE TAB PO SCH (12:45)
--- NOTE | 2017-02-18 14:40 | HHI.PR ---
Subjective Interval History Alert, oriented, no complaints, no lightheadedness when walking, no blood in stools, no chest pain, no pressure Review of Systems Constitutional Constitutional Remarks 10 systems reviewed and otherwise negative Vitals/Results Intake & Output 02/17/17 02/17/17 02/18/17 15:00 23:00 07:00 Intake Total 650 ml 1299 ml Balance 650 ml 1299 ml Intake Oral 550 ml 550 ml IV Total 749 ml Other 100 ml # Voids 3 100 3 # Bowel Movements 1 0 Vital Signs Vital Signs Date Time Temp Pulse Resp B/P Pulse Ox O2 Delivery O2 Flow Rate FiO2 02/18/17 12:45 96.2 78 16 119/62 97 02/18/17 10:47 96 21 02/18/17 08:00 96.6 78 16 143/70 98 02/18/17 04:33 97.9 73 20 131/70 98 02/18/17 00:29 97.8 70 19 121/58 96 02/17/17 20:50 21 02/17/17 20:00 97.9 86 18 155/69 97 02/17/17 17:00 98.1 73 14 145/72 95 Room Air 02/17/17 16:45 75 14 143/70 95 Room Air 02/17/17 16:30 76 14 140/70 95 Room Air 02/17/17 16:20 98.1 81 14 139/72 93 Room Air CBC/BMP: 02/18/17 0705 02/18/17 0705 Lab Results Laboratory Tests Test 02/18/17 07:05 White Blood Count 4.3 TH/MM3 Red Blood Count 4.00 MIL/MM3 Hemoglobin 7.9 GM/DL Hematocrit 26.6 % Mean Corpuscular Volume 66.5 FL Mean Corpuscular Hemoglobin 19.7 PG Mean Corpuscular Hemoglobin 29.6 % Concent Red Cell Distribution Width 27.4 % Platelet Count 265 TH/MM3 Mean Platelet Volume 8.5 FL Sodium Level 139 MEQ/L Potassium Level 3.9 MEQ/L Chloride Level 107 MEQ/L Carbon Dioxide Level 26.8 MEQ/L Anion Gap 5 MEQ/L Blood Urea Nitrogen 7 MG/DL Creatinine 0.70 MG/DL Estimat Glomerular Filtration 81 ML/MIN Rate Random Glucose 91 MG/DL Calcium Level 8.2 MG/DL Iron Level 14 MCG/DL Total Iron Binding Capacity 543 MCG/DL Percent Iron Saturation 2.6 % Vitamin B12 Level 239 PG/ML Folate 11.8 NG/ML Physical Exam General General Appearance: Well Nourished, Comfortable, Obese Eyes Eye Exam: Pupils Reactive Ears & Nose Ears & Nose Exam: Auditory Canals Normal, Nasal Mucosa [place] Throat Throat Exam: Oral Mucosa [place] & Moist Neck Neck Exam: Trachea Midline Pulmonary Resp Exam: Breath Sounds Equal, No Distress Cardiology CV Exam: Normal Sinus Rhythm, Good Perfusion Gastrointestinal/Abdomen GI Exam: Non-Tender, Bowel Sounds Present Musculoskeletal MS Exam: Normal Gait, Normal Tone Integumentary Skin Exam: Warm, Dry Neurologic Neuro Exam: Awake, Oriented, Speech Clear, Moving All Extremities Psychiatric Psych Exam: Appropriate Responses Assessment/Plan Assessment/Plan Assessment Severe asymptomatic anemia on admission Transfuse 2 units packed red blood cells this admission Chest discomfort without evidence of acute coronary event Large hiatal hernia, probably paraesophageal Linear erosions both in the hiatal hernia and in the stomach EGD done on 02/17/17 Management Discharge home Protonix Oral iron Follow-up with Dr. Merlos on Monday needs to lose weight Discussed with nurse Discussed with patient Is to come back to the emergency room if any syncope, presyncope, chest pain Discharge Minutes: 45 Landon Woods MD Feb 18, 2017 14:40
[2017-02-18] MEDS ORDERED: BISA10R RECTAL (14:49)
[2017-02-18] MEDS ORDERED: AMLO10 PO (14:49)
[2017-02-18] MEDS ORDERED: FERR325T PO (14:49)
--- NOTE | 2017-02-18 19:40 | MR ---
cc: YUDELKA JORGE MD, SUNIL P. M.D. O'DONNELL, ERICA L. D.O. RICCI, DONATO DATE: 02/17/2017. DATE OF : 1940. PROCEDURE PERFORMED: Esophagogastroduodenoscopy with biopsy. INDICATIONS FOR THE PROCEDURE: The patient is a 76-year-old white female who presented to the hospital with microcytic anemia (hemoglobin of 5.7 - after transfusion it was 8.4). She also has heme-positive brown stools. She has ulcerative colitis but the colitis was inactive and biopsies were negative on a colonoscopy done in August of 2016. situation -- she is known to have a large hiatal hernia. ENDOSCOPIST: Minh Pinon MD ASSISTANTS: Gastrointestinal laboratory personnel. SCOPE: GIF-180 Olympus gastroscope -- the procedure was done in the operating room. ANESTHESIA: Diprivan by PROTOCOL OFFICER INTRAVENOUS MEDICATION: See above. PHYSICAL EXAM: The physical exam is unchanged from my consultation dictated this morning. Please refer to that note. CONTINUOUS MONITORING: The patient had routine blood pressure monitoring, pulse oximeter/oxygen, and cardiac monitoring. INFORMED CONSENT: Obtained with full verbal understanding, the indication for procedure (see above), risks and complications (bleeding, perforation, infection, arrhythmias, mediastinitis, small possibility of , etc.), limitations (we may not see everything due to prep and anatomy especially if there is a lot of blood in the stomach or food is there, etc.), alternatives (upper GI, small bowel follow through, surgery, etc.), benefits (we can potentially see the entire esophagus, stomach, and part of the duodenum, and biopsy, cauterize, inject or dilate various lesions or abnormalities if needed, etc.) All questions were answered, all parties agreed to the procedure. DESCRIPTION OF PROCEDURE: The patient was placed in the left lateral decubitus position. The above noted sedation was given in very slow incremental doses. Once an optimal level of sedation was achieved, then the above mentioned gastroscope was inserted and passed into the hypopharyngeal area, esophagus which was inspected in its entire length, through the stomach, which was seen in straight view, as well as retroflex view, and the gastric pool was suctioned. The stomach was fully insufflated. The pylorus was entered and the scope passed through the duodenal bulb, second and third portion. All air and secretion were suctioned prior to removal of the scope. FINDINGS: 1. Esophagus: The gastroesophageal junction was at 31 cm. There are no mucosal lesions. No esophageal varices or candidal esophagitis was seen. Of note, there is a large hiatal hernia, see below. 2. Stomach: The stomach was seen on straight view as well as retroflexed view. Upon entry into the stomach, it was quite tortuous just below the GE junction. She has a large hiatal hernia and I suspect part of her hernia is paraesophageal. I was able to get down towards the body and the lower cuff of the hiatal hernia and here it was noted that there were several linear superficial erosions / ulcerations suggestive of Bautista's lesions (5-10 mm in size). On the way out, these were biopsied. The stomach did distend quite fully. It was seen on straight view as well as retroflexed view. The actual paraesophageal part was difficult to visualize completely. Again, there are no masses, polypoid lesions, gastric varices noted. 3. Duodenum: The pylorus was patent. Within the duodenal bulb, there is a lot of bile staining but I was able to see a few superficial erosions which were not bleeding so they were left alone. The second and third portions were grossly unremarkable. SPECIMENS: Stomach - specifically Bautista's lesions of the stomach. TOLERANCE OF THE PROCEDURE: The patient tolerated the procedure quite well. There were no immediate complications. Lungs, heart, vital signs and the rest of the physical exam is unchanged post-procedure. IMPRESSION: 1. Large hiatal hernia -- suspect paraesophageal. At the lower cuff of the hiatal hernia were several linear erosions and ulcers -- suggestive of Bautista's lesions, these were biopsied. I suspect this is the cause of the iron deficiency anemia. 2. Duodenal erosions in the bulb -- left alone. PLANS: 1. Await biopsy. 2. Continue proton pump inhibitor. 3. Iron supplements. 4. Advance diet. 5. The patient to follow up with Dr. Merlos to arrange an outpatient upper GI to further define the anatomy of the hiatal hernia in anticipation of surgical repair. 6. The patient will be discharged once tolerating diet and hemoglobin is stable. MD KAPIL Morrison /4:36 PM /7:21 PM
--- NOTE | 2017-02-21 18:27 | HHI.DS ---
Discharge Summary Admission Date Feb 16, 2017 at 22:25 Discharge Date: Feb 18, 2017 Admitting Diagnosis symptomatic anemia, heme-positive stool (1) Symptomatic anemia Diagnosis: Principal (2) Heme positive stool Diagnosis: Principal (3) Hiatal hernia Diagnosis: Secondary (4) HTN (hypertension) Diagnosis: Secondary (5) Hyperlipidemia Diagnosis: Secondary (6) Hx of ulcerative colitis Diagnosis: Secondary Brief History This was a pleasant 76-year-old female with significant past medical history hypertension, hyperlipidemia, hypothyroid, ulcer colitis, GI bleed. Patient indicated that for the last week she had dyspnea with exertion and chest pressure, this improves after resting. There was no radiation, no other associated symptoms such as nausea, vomiting, diaphoresis. She went to see her primary care physician who ordered a d-dimer which was positive. She was sent to the emergency room for further evaluation. Patient denied any fever, no chills. Had noted in the last couple days that her stools are darker. No hematemesis. No weight loss, no abdominal discomfort, no weight loss. States that she sees gastroenterology, Dr. Merlos for history of ulcerative colitis which has been stable, has never had any complications. She was maintained on Lialda. Patient stated she had a colonoscopy on August 2016 that did not reveal any acute findings. She's had previous episodes of anemia, her hemoglobin dropped to 3 and she received 4 units. She was not exactly sure what caused her previous episode of anemia. Patient was evaluated in emergency room, hemoglobin was 6.1, hematocrit 21. Repeat hemoglobin was 5.7 and hematocrit of 20. She was heme-positive stools. She received 2 units of packed cells and her posttransfusion hemoglobin was 8.4, and hematocrit 28.2. Troponins were negative. CTA was done, negative for PE. She has been evaluated by gastroenterology, the plan is for upper and lower endoscopy today. Patient is resting comfortably, she is sitting up in the chair. Denies any dizziness. Patient is admitted for further evaluation and treatment. CBC/BMP: 02/18/17 0705 02/18/17 0705 Significant Findings EGD Imaging Last Impressions Chest X-Ray 02/16/172033 Signed Impressions: Service Date/Time: February 20:38 - CONCLUSION: Large hiatal hernia. No definite acute cardiopulmonary disease [place] Mariscal MD CT Angiography 02/16/172033 Signed Impressions: Service Date/Time: February 21:45 - CONCLUSION: No evidence of pulmonary embolism [place] Mariscal MD PE at Discharge General Appearance: Well Nourished, Comfortable, Obese Eyes Eye Exam: Pupils Reactive Ears & Nose Ears & Nose Exam: Auditory Canals Normal, Nasal Mucosa [place] Throat Throat Exam: Oral Mucosa [place] & Moist Neck Neck Exam: Trachea Midline Pulmonary Resp Exam: Breath Sounds Equal, No Distress Cardiology CV Exam: Normal Sinus Rhythm, Good Perfusion Gastrointestinal/Abdomen GI Exam: Non-Tender, Bowel Sounds Present Musculoskeletal MS Exam: Normal Gait, Normal Tone Integumentary Skin Exam: Warm, Dry Neurologic Neuro Exam: Awake, Oriented, Speech Clear, Moving All Extremities Psychiatric Psych Exam: Appropriate Responses Hospital Course Protonix for GI prophylaxis These are the diagnoses that were used to treat patient during her hospital stay and further plan of care. Severe asymptomatic anemia on admission Initially, patient was transfused 2 units, follow up hemoglobin 8.4, hematocrit 28.2 -Continue with serial H&H's, and monitored throughout hospital stay Gastroenterology has been consulted, Dr. Pinon has evaluated patient and plans to do upper and lower endoscopy today -Continue with Protonix IV, first 24 hours and then transitioned to by mouth -NPO status initially on admission Medical management included monitoring of History of ulcerative colitis, on Lialda, has been stable. -GI consultation -Monitor stools Hypertension, stable Continue home medication Hyperlipidemia, stable Continue home medication SCDs for DVT prophylaxis Chest discomfort without evidence of acute coronary event, monitor for medical management. Probable secondary to low hemoglobin. Once patient was stabilized , no further chest pain was noted Large hiatal hernia, probably paraesophageal Linear erosions both in the hiatal hernia and in the stomach GI consult done for their expert opinion. EGD done on 02/17/17. All indications, risks, complications, benefits, alternatives were discussed with her including the risk of bleeding, perforation, infection, arrhythmias and the small possibility of . Because of her weight, she is at higher risk but she is willing to get this done this afternoon. Patient tolerated procedure well and was placed on medical management. On 4:15 Dr. Woods saw patient in follow that she was stable for home Patient was placed on Protonix, Oral iron, and was to Follow-up with Dr. Merlos on Monday after discharge Patient was educated on weight reduction and encouraged to pursue after her discharge Plan of care was Discussed with nurse, and patient If needed patient Is to come back to the emergency room if any syncope, presyncope, chest pain Pt Condition on Discharge: Fair Discharge Disposition: Discharge Home Discharge Instructions DIET: Follow Instructions for: Low Fat Diet Additional Diet Instructions: Low-calorie Activities you can perform: Weight Bearing as Ethan Follow up Referrals: Gastroenterology with Juan Merlos MD New Medications: Amlodipine (Norvasc) 10 Mg Tab 10 MG PO DAILY Blood Pressure Management #30 TAB Bisacodyl Supp (Bisac-Evac Supp) 10 Mg Supp 10 MG RECTAL DAILY PRN CONSTIPATION #20 EA Ferrous Sulfate (Ferrous Sulfate) 325 Mg Tab 325 MG PO BID iron deficiency #60 TAB Continued Medications: Benazepril (Benazepril) 20 Mg Tab 20 MG PO DAILY Blood Pressure Management #30 Ref 0 TAB Levothyroxine (Levothyroxine) 25 Mcg Tab 25 MCG PO DAILY Thyroid #30 Ref 0 TAB Lovastatin (Lovastatin) 20 Mg Tab 20 MG PO DAILY Cholesterol Management #30 Ref [address] (Lialda) 1.2 Gm Tabdr 2.4 GM PO BID Take with a meal. Ulcerative Colitis Ref 0 TAB Discontinued Medications: Alendronate (Alendronate) 70 Mg Tab 70 MG PO Q7D Osteporosis Treatment #4 Ref 0 TAB Amlodipine (Amlodipine) 10 Mg Tab 20 MG PO DAILY Blood Pressure Management #30 Ref 0 TAB Hanh Hua Feb 21, 2017 18:27
== END 2017-02-18 16:15 | disposition home or self-care (01) | DRG 812 ==
LOC: NEPE 18:50 → NEDA 22:25 → HOCA 02-17 00:31
PROVIDERS: ADMIT Specialist; ATTEND Specialist
PROC: 30253N1 (ICD-10-PCS; principal; 2017-02-16)
PROC: 0DB58ZX Excision of Esophagus, Via Natural or Artificial Opening Endoscopic, Diagnostic (ICD-10-PCS; 2017-02-17)
PROC: 0DB68ZX Excision of Stomach, Via Natural or Artificial Opening Endoscopic, Diagnostic (ICD-10-PCS; 2017-02-17)
DX: D50.9 Iron deficiency anemia, unspecified (principal); K51.90 Ulcerative colitis, unspecified, without complications; K26.9 Duodenal ulcer, unspecified as acute or chronic, without hemorrhage or perforation; I10 Essential (primary) hypertension; E03.9 Hypothyroidism, unspecified; E78.5 Hyperlipidemia, unspecified; K44.9 Diaphragmatic hernia without obstruction or gangrene; L43.9 Lichen planus, unspecified; M81.0 Age-related osteoporosis without current pathological fracture
CPT/HCPCS: 36430; 71010; 71275; 80048; 80053; 82550; 82607; 82746; 83540; 83550; 84484; 85025; 85027; 85610; 85730; 86850; 86900; 86901; 86920; 88305; 88312; 93005; C9113; J7030; P9016; Q9967

== ENCOUNTER 2017-06-01 08:00 | Inpatient (IN) | payer MEDICARE ==
[~2017-06-01] VITALS: Ht 157.5 cm; Wt 91.5 kg
[~2017-06-01 08:00] MED LIST: AMLO10 PO; BENA20TA PO; LEVO25TA4 PO; LIAL1.2T PO; LOVA20TA PO
[2017-06-12] MEDS ORDERED: PRIL20TA2 PO (14:17)
[2017-06-14 11:58] LABS: MEAN CORPUSCULAR HGB CONC 29.7 % (32.0-36.0)
[2017-06-14] MEDS ORDERED: ONDANSETRON HCL 4 MG/2 ML VIAL IV PUSH ONE (12:00)
[2017-06-14] MEDS ORDERED: NEOSTIGMINE 3 MG/3 ML SYR IV ONE (12:00)
[2017-06-14] MEDS ORDERED: PROPOFOL 200 MG/20 ML AMP IV ONE (12:00)
[2017-06-14] MEDS ORDERED: LACTATED RINGER'S 1000 ML INJ 1,000 ML IV ONE (12:00)
[2017-06-14] MEDS ORDERED: LACTATED RINGER'S 1000 ML IV PRN (12:30)
[2017-06-14] MEDS ORDERED: CHLORHEXIDINE GLUCONATE 2 % 1 PACK (2 CLOTHS) TOPICAL PRN (12:30)
[2017-06-14] MEDS ORDERED: METOPROLOL TARTRATE 25 MG TAB PO PRN (12:30)
[2017-06-14] MEDS ORDERED: POVIDONE IODINE 5% (ANTISEPSIS KIT) 4 APPLICATIONS EACH NARE PRN (12:30)
[2017-06-14] MEDS ORDERED: INSULIN HUMAN REGULAR 1,000 UNITS/10 ML VIAL SQ PRN (12:30)
[2017-06-14] MEDS ORDERED: SODIUM CHLORID 0.9% 500 ML IV PRN (12:30)
[2017-06-14] MEDS ORDERED: VANCOMYCIN HCL 1000 MG ON-CALL/NS 250 ML IV SCH ×2 (12:30)
[2017-06-14] MEDS ORDERED: CALC600T64 PO (12:40)
[2017-06-14 12:44] VITALS: BP 163/73; PULSE 82; RESP 20; TEMP 97.3; O2SAT 98
[2017-06-14 12:58] LABS: AUTOMATED NEUTROPHIL # 3.7 TH/MM3 (1.8-7.7); BASOPHIL % 0.8 % (0.0-2.0); EOSINOPHIL # 0.1 TH/MM3 (0-0.4); HEMATOCRIT 30.4 % (35.0-46.0); HEMO FLAGS DIFF FINAL; LYMPH % 18.1 % (9.0-44.0); MEAN CELL VOLUME 66.8 FL (80.0-100.0); MEAN CORPUSCULAR HEMOGLOBIN 19.9 PG (27.0-34.0); MONO % 10.5 % (0.0-8.0); NEUT % 69.6 % (16.0-70.0); PLATELET COUNT 333 TH/MM3 (150-450); RED BLOOD COUNT 4.55 MIL/MM3 (4.00-5.30); RED CELL DISTRIBUTION WIDTH 19.1 % (11.6-17.2); WHITE BLOOD COUNT 5.4 TH/MM3 (4.0-11.0)
[2017-06-14] MEDS ORDERED: ACETAMINOPHEN 1000 MG/100 ML VIAL IV ONE (13:26)
[2017-06-14] MEDS ORDERED: FAMOTIDINE 20 MG/2 ML VIAL ONE (13:27)
[2017-06-14] MEDS ORDERED: MIDAZOLAM HCL 2 MG/2 ML VIAL ONE ×2 (13:42→16:19)
[2017-06-14] MEDS ORDERED: DEXAMETHASONE SOD PHOS 4 MG/ML VIAL ONE (13:42)
[2017-06-14] MEDS ORDERED: BUPIVACAINE/EPINEPHRINE 0.5% PF 10 ML VIAL INFIL ONE (14:10)
--- NOTE | 2017-06-14 16:08 | PD.OP ---
Operative Report Date of Surgery: Jun 14, 2017 Preoperative Diagnosis: anemia, Bautista's lesions, Hiatal hernia, GERD Postoperative Diagnosis: same Procedure: lap repair HH with [place] BIO A mesh and renita fundoplication Anesthesia: general Surgeon: Murali Jerry Sheriff'S Officer(s): Rm Hamlin Operation and Findings: large HH with half of stomach in chest. 360 degree loose fundoplication over 48 [place]. EBL less than 10 ml. Murali Jerry MD Jun 14, 2017 16:08
[2017-06-14] MEDS ORDERED: Post-op Orders (for Pharmacy) MISC XX ONE (16:15)
[2017-06-14] MEDS ORDERED: diphenhydrAMINE HCL 25 MG CAP PO PRN (16:15)
[2017-06-14] MEDS ORDERED: ACETAMINOPHEN/HYDROcodone 325 MG/5 MG TAB PO PRN ×2 (16:15)
[2017-06-14] MEDS ORDERED: ONDANSETRON HCL 4 MG/2 ML VIAL IV PRN (16:15)
[2017-06-14] MEDS ORDERED: MAGNESIUM HYDROXIDE SUSP 30 ML CUP PO PRN (16:15)
[2017-06-14] MEDS ORDERED: SODIUM CHLORIDE 0.9% FLUSH 10 ML FLUSH IV FLUSH PRN (16:15)
[2017-06-14] MEDS ORDERED: HYDROmorphone HCL PF 1 MG/ML VIAL IV PRN (16:15)
[2017-06-14] MEDS ORDERED: fentaNYL CITRATE 250 MCG/5 ML AMP ONE (16:20)
[2017-06-14] MEDS ORDERED: *morphine SULFATE 8 MG/ML PERIprocedure ONLY ONE ×3 (16:27→16:56)
[2017-06-14] MEDS: LACTATED RINGER'S 1000 ML INJ 1,000 ML IV SCH (16:52)
[2017-06-14] MEDS: ACETAMINOPHEN 1000 MG/100 ML VIAL IV SCH ×2 (16:53→23:00)
[2017-06-14] MEDS ORDERED: DO NOT ADM ANY ANTICOAGULANT DRUGS PRN (17:15)
[2017-06-14] MEDS ORDERED: *HYDROmorphone PF 1 MG VIAL PERIprocedural Use ONLY ONE (17:16)
[2017-06-14] MEDS ORDERED: *ONDANSETRON 4 MG VIAL PERIprocedural Use ONLY ONE (17:20)
[2017-06-14 20:06] VITALS: BP 130/63; PULSE 82; RESP 18; TEMP 97.8; O2SAT 96
[2017-06-14] MEDS: CALCIUM/VITAMIN D 250 MG/125 U TAB PO SCH (20:36)
[2017-06-14] MEDS: SODIUM CHLORIDE 0.9% FLUSH 10 ML FLUSH IV FLUSH SCH (20:37)
[2017-06-14] MEDS ORDERED: CALCIUM CARBONATE PO SCH (21:00)
[2017-06-14] MEDS ORDERED: VITAMIN D3 PO SCH (21:00)
[2017-06-14] MEDS ORDERED: MESALAMINE 2.4 GM PO SCH (21:00)
[2017-06-14] MEDS ORDERED: MESALAMINE PO SCH (21:00)
[2017-06-14 21:29] VITALS: O2SAT 96
[2017-06-15 00:09] VITALS: BP 137/62; PULSE 72; RESP 18; TEMP 96.7; O2SAT 96
[2017-06-15 04:15] VITALS: BP 139/65; PULSE 74; RESP 18; TEMP 96.8; O2SAT 98
[2017-06-15] MEDS: ACETAMINOPHEN 1000 MG/100 ML VIAL IV SCH ×2 (05:41→11:01)
[2017-06-15] MEDS: LACTATED RINGER'S 1000 ML INJ 1,000 ML IV SCH ×2 (05:45→13:00)
[2017-06-15] MEDS ORDERED: LEVOTHYROXINE SODIUM 25 MCG TAB PO SCH (06:00)
[2017-06-15 08:00] VITALS: BP 144/61; PULSE 70; RESP 16; TEMP 97.2; O2SAT 99
[2017-06-15 08:53] VITALS: O2SAT 93
--- NOTE | 2017-06-15 08:53 | HHI.PR ---
Subjective Subjective Notes feels fine, no pain, no nausea. Tolerating water, swallowing fine. No SOB, does not need O2. Objective Vitals/I&O Vital Signs Date Time Temp Pulse Resp B/P Pulse Ox O2 Delivery O2 Flow Rate FiO2 06/15/17 08:00 97.2 70 16 144/61 99 06/14/17 21:29 Nasal Cannula 2.00 Labs Laboratory Tests Test 06/14/17 06/15/17 12:45 05:50 White Blood Count 5.4 Red Blood Count 4.55 Hemoglobin 9.0 8.3 Hematocrit 30.4 Mean Corpuscular Volume 66.8 Mean Corpuscular Hemoglobin 19.9 Mean Corpuscular Hemoglobin 29.7 Concent Red Cell Distribution Width 19.1 Platelet Count 333 Mean Platelet Volume 6.6 Neutrophils (%) (Auto) 69.6 Lymphocytes (%) (Auto) 18.1 Monocytes (%) (Auto) 10.5 Eosinophils (%) (Auto) 1.0 Basophils (%) (Auto) 0.8 Neutrophils # (Auto) 3.7 Lymphocytes # (Auto) 1.0 Monocytes # (Auto) 0.6 Eosinophils # (Auto) 0.1 Basophils # (Auto) 0.0 CBC Comment DIFF FINAL Differential Comment Cardiovascular: Regular Lungs: Clear Abdomen: Non-distended, Other (incision sites all healing well beneath steri strips. No erythema. No drainage. BS normal.), Post-op tenderness Extremities: No edema, Perfused, SCD's on A/P Assessment and Plan POD 1 s/p lap repair HH with Bio A mesh and renita fundoplication. Doing well. Has not had a meal yet. Plan DC home later today if tolerating liquids. Follow up as scheduled in 1-2 weeks. Murali Jerry MD Jun 15, 2017 08:53
[2017-06-15] MEDS ORDERED: HYDR-3533 PO (08:56)
--- NOTE | 2017-06-15 08:59 | HHI.DS ---
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 CBC/BMP: 06/15/17 0550 Significant Findings Laboratory Tests Test 06/14/17 06/15/17 12:45 05:50 Hemoglobin 9.0 GM/DL 8.3 GM/DL (11.6-15.3) (11.6-15.3) Hematocrit 30.4 % (35.0-46.0) Mean Corpuscular Volume 66.8 FL (80.0-100.0) Mean Corpuscular Hemoglobin 19.9 PG (27.0-34.0) Mean Corpuscular Hemoglobin 29.7 % Concent (32.0-36.0) Red Cell Distribution Width 19.1 % (11.6-17.2) Mean Platelet Volume 6.6 FL (7.0-11.0) Monocytes (%) (Auto) 10.5 % (0.0-8.0) PE at Discharge Incisions healing well. Clear breath sounds, abdomen non tender. Hospital Course Admitted, had surgery, recovered well. Pt Condition on Discharge: Good Discharge Disposition: Discharge Home Discharge Instructions DIET: Follow Instructions for: Full Liquid Diet Additional Diet Instructions: up to mashed potato consistency, use dietary supplements like ensure as needed. Activities you can perform: Shower Only-No Bath Activities to Avoid: Driving for 24 hrs, Strenuous Activity Murali Jerry MD Jun 15, 2017 08:59
[2017-06-15] MEDS: SODIUM CHLORIDE 0.9% FLUSH 10 ML FLUSH IV FLUSH SCH (09:00)
[2017-06-15] MEDS ORDERED: LISINOPRIL 20 MG TAB PO SCH (09:00)
[2017-06-15] MEDS ORDERED: PRAVASTATIN SOD 20 MG TAB PO SCH (09:00)
[2017-06-15] MEDS: CALCIUM/VITAMIN D 250 MG/125 U TAB PO SCH (09:33)
[2017-06-15 12:00] VITALS: BP 187/77; PULSE 85; RESP 18; TEMP 97.9; O2SAT 98
--- NOTE | 2017-06-16 11:44 | MP ---
cc: BJ OVIEDO,ARNOLDO Wilson M.D. BOLIVAR COLLIER M.D. DATE OF SURGERY: 06/16/2017. PREOPERATIVE DIAGNOSIS: 1. Anemia. 2. Bautista's lesions. 3. Hiatal hernia. 4. Gastroesophageal reflux disease. POSTOPERATIVE DIAGNOSIS: 1. Anemia. 2. Bautista's lesions. 3. Hiatal hernia. 4. Gastroesophageal reflux disease. OPERATIVE PROCEDURE PERFORMED: Laparoscopic repair of hiatal hernia with [place] Bio-A Mesh and Maegan fundoplication. SURGEON: Arnoldo Jerry M.D. RAILROAD TRACK REPAIR SUPERVISOR: Bruce Gaytan MD. SECOND TRACTOR TRAILER MECHANIC: Rm Adorno MD. ANESTHESIA: General. INDICATIONS FOR THE PROCEDURE: This is a very pleasant 77-year-old woman who initially presented to this healthcare system with shortness of breath and she was found to be anemic. Extensive workup for her anemia resulted in the discovery of Bautista's lesions associated with a sliding type hiatal hernia. Recommendations were made for laparoscopic repair. She additionally has been treated with a proton pump inhibitor medication and plans were made for Maegan fundoplication. INTRAOPERATIVE FINDINGS: Successful reduction and repair of the hiatal hernia where half of her stomach was in her chest. A 360 loose fundoplication was performed over a 48-Yemeni bougie. ESTIMATED BLOOD LOSS: Less than 10 mL. DESCRIPTION OF THE PROCEDURE IN DETAIL: The patient identified as Lilian Marquez and taken to the operating room and placed in supine position. Sequential compression devices were placed on bilateral lower extremities. Following induction of adequate general endotracheal anesthesia, the patient's abdomen was prepped and draped in the usual sterile fashion with Betadine. A time-out procedure was performed. Following completion of the time-out procedure to everyone's satisfaction within the room, the proposed incision about 6 cm above the umbilicus was infiltrated with local anesthetic. The incision was carried out with a scalpel and dissection taken posteriorly through generous subcutaneous fatty tissue layer to her midline fascia was discovered. This was incised carefully with a scalpel allowing for entry into peritoneal cavity with the surgeon's finger. The [employer] Balloon Blaze trocar was placed in the peritoneal cavity, its balloon inflated to C02 insufflation to a level of 15 mmHg ensued. Immediately identified were omental adhesions to a slightly right of midline paramedian incision from her remote history of open cholecystectomy and open appendectomy. A right lateral 5 mm trocar was placed in the peritoneal cavity under direct laparoscopic view after incision in the skin with a scalpel. The adhesiolysis was performed with the harmonic scalpel taking down the omentum from the anterior abdominal wall. Three additional 5 mm trocars were placed across the upper abdomen under direct laparoscopic view after incision in the skin with a scalpel. The Jennifer-Flex liver retractor was placed beneath the left lateral lobe of liver retracting it anteriorly and held position with the robot arm. The patient's skin was protected with a laparotomy pad beneath the 5-mm trocar. Attention was then turned to reduction of stomach and omentum from the chest. The hernia sac was sequentially mobilized and reduced from the mediastinum using the harmonic scalpel and blunt graspers. Short gastric vessels were taken down with the harmonic scalpel allowing for identification of the left side diaphragmatic crura and further release of the hernia sac. The hernia sac was removed in two large pieces using the Harmonic scalpel, placed into an Endo retriever bag and then removed through the supraumbilical site and discarded. The right and left diaphragmatic crura were then identified and a posterior window at the GE junction was developed and the mitchell's hook retractor was placed through this opening. This allowed for widening of the posterior window and identification of the fundus of the stomach which was brought through the posterior window and had no tension on it whatsoever. Two posterior crural approximating sutures were placed using the suture captain assistant device and Ethibond suture. Nurse anesthesia then placed bougies 36, 40, 44 and 48-Yemeni bougies. There were no complications to bougie placement. The final bougie they had difficulty getting it through the oropharynx and therefore it was left in position and a larger bougie was not attempted. A 360 degrees three suture fundoplication was then performed superior to sutures including full-thickness stomach on either side of the anterior partial-thickness esophagus and the inferior most suture just full-thickness stomach to full-thickness stomach. Again the suture captain assistant device using #0 Ethibond sutures were used. The bougie was then removed without difficulty. A third crural approximating suture was posteriorly placed using the Ethicon suture captain assistant device and #0 Ethibond suture. The Bio-A mesh which was then saturated in saline was then customized and shaped and placed to buttress the repair. It was placed in a reverse C position around the esophagus onto the diaphragmatic repair, placing the suture at the 6 o'clock and 12 o'clock positions for fixation of the mesh. The mesh was tucked beneath the triangular ligament of the liver and a fibrin sealant was placed from the mesh to fasten it further to the diaphragm. Photographs were taken of completed repair. There is no tension on the hiatal hernia wrap or the hiatal hernia repair. No gastropexy or gastrostomy tube was placed. The Jennifer-Flex retractor was removed. There was no evidence of injury to the liver. No other obvious intra-abdominal abnormality other than fatty infiltrated liver was noted. Trocars were removed under direct visualization and there was no evidence of bleeding from trocar sites. The abdomen was desufflated through the supraumbilical port actively which was then removed. The supraumbilical fascial incision was closed with interrupted 0 Vicryl sutures. Port site skin incisions were then approximated with 4-0 Monocryl subcuticular sutures. Dressings were applied with Mastisol and half-inch brown Steri-Strips. The patient tolerated the procedure without apparent complication. Sponge, needle and instrument counts were correct at the end of the case. MD TYREE Barclay/SAURAV /4:12 PM /11:27 AM
== END 2017-06-15 15:09 | disposition home or self-care (01) | DRG 328 ==
LOC: HSDI 06-14 11:23 → INTOOBSV 06-14 11:23 → EDSTATUS 06-14 13:30 → OBSVTOIN 06-14 17:27 → N07B 06-14 17:32
PROVIDERS: ADMIT Surgery Trauma Surgery; ATTEND Surgery Trauma Surgery
PROC: 0DV44ZZ Restriction of Esophagogastric Junction, Percutaneous Endoscopic Approach (ICD-10-PCS; 2017-06-14)
PROC: 0BUS4JZ (ICD-10-PCS; principal; 2017-06-14 13:47)
PROC: 0BUR4JZ (ICD-10-PCS; 2017-06-14 13:47)
DX: K44.9 Diaphragmatic hernia without obstruction or gangrene (principal); D64.9 Anemia, unspecified; K27.9 Peptic ulcer, site unspecified, unspecified as acute or chronic, without hemorrhage or perforation; K21.9 Gastro-esophageal reflux disease without esophagitis; E03.9 Hypothyroidism, unspecified
CPT/HCPCS: 85018; 85025; 94150; C1781; J0131; J1100; J1170; J2250; J2270; J2405; J2710; J3010; J3370; J7050; J7120